=== PATIENT | male | born 1955 | race Caucasian/White ===

== ENCOUNTER 2022-02-28 09:08 | Outpatient (CLI) | payer MEDICARE, SELFPAY ==
--- NOTE | 2022-02-28 09:34 | XR_ITS ---
WS: [id number] PA and lateral chest, 02/28/2022 Clinical Data: COPD,ACUTE EXACERBATION Comparison: Portable chest, 01/01/2019. Findings: No nodules, masses or effusions are seen. The diaphragms are flattened. There are severe bu llous emphysematous changes and interstitial changes throughout the lungs. No pneumothorax is seen. T he heart is normal. There is a single lead pacemaker unchanged in position with the generator overlyi ng the upper left lung. XR/XR chest 2V* [id number] Impression: 1. No change in severe bullous emphysema. 2. No change in severe interstitial infiltrate especially in the lower lobes. 3. Cardiac pacemaker.
== END 2022-02-28 09:09 | disposition home or self-care (01) ==
LOC: RAD 09:13
PROVIDERS: Family Provider Family Medicine; Visit Provider Clinical Nurse Specialist Adult Health
DX: J44.1 Chronic obstructive pulmonary disease with (acute) exacerbation (principal); Z95.0 Presence of cardiac pacemaker
CPT/HCPCS: 71046

== ENCOUNTER 2022-08-23 10:28 | Emergency (ER) | payer MEDICARE, SELFPAY ==
[2022-08-23 10:46] VITALS: BP 132/75; PULSE 84; RESP 16; TEMP 36.6; O2SAT 98; BMI 18.1
[2022-08-23 13:23] VITALS: BP 140/76; PULSE 76; O2SAT 96
--- NOTE | 2022-08-23 13:41 | XRR_ITS ---
PROCEDURE INFORMATION: Exam: XR Chest Exam date and time: 08/23/2022 1:49 PM Age: 66 years old Clinical indication: Cough and dyspnea; Additional info: Cough, dyspnea TECHNIQUE: Imaging protocol: Radiologic exam of the chest. Views: 1 view. COMPARISON: CR XR chest 2V* [id number] 02/28/2022 9:41 AM FINDINGS: Tubes, catheters and devices: Pacemaker stable. Lungs: Hyperinflation. Prominent bronchovascular markings are stable consistent with interstitial lung disease. Pleural spaces: Unremarkable. No pleural effusion. No pneumothorax. Heart/Mediastinum: Unremarkable. No cardiomegaly. Bones/joints: Unremarkable. XR/XR chest 1V portable [id number] IMPRESSION: No change. Interstitial lung changes.
--- NOTE | 2022-08-23 13:41 | ECG_ITS ---
[facility] Test Date: 2022-08-23 Pat Name: Zyead Chu Department: Room: Gender: Male Twisting Operator: : 1955 Requested By: Prosper Vicente Order Number: [id number] Alfonso MD: Ronnie Mcclelland M.D. Measurements Intervals [place] Rate: 71 P: 78 LA: 235 QRS: 98 QRSD: 100 T: 83 QT: 392 QTc: 428 Interpretive Statements SINUS RHYTHM WITH FIRST DEGREE AV BLOCK BORDERLINE RIGHT AXIS DEVIATION [QRS AXIS > 90] PATTERN CONSISTENT WITH PULMONARY DISEASE Compared to ECG 01/01/2019 19:00:38 First degree AV block now present Indeterminate axis no longer present Myocardial infarct finding no longer present Electronically Signed On 08-24-2022 15:02:03 STRUCTURAL SHOP HELPER by Ronnie Mcclelland M.D. [id number]
--- NOTE | 2022-08-23 13:46 | W.ED.SOB ---
HPI - SOB/Dyspnea General: Chief Complaint: Shortness of Breath/Dyspnea Stated Complaint: SOB Time Seen by Provider: 08/23/22 10:50 Source: patient and family Mode of arrival: ambulatory Limitations: no limitations History of Present Illness: HPI Narrative: 66-year-old male smoker with chronic hypoxic hypercapnic respiratory failure due to emphysema COPD presents with exacerbation of dyspnea that he relates to a recent respiratory infection. About 7 days ago he started having runny nose, congestion, headache, sore throat, malaise. The respiratory symptoms progressed and now he has cough and states he cannot walk more than 5 feet. He uses 2 L of oxygen at all times at home. He does continue to smoke cigarettes. He has not had a fever in the last 48 hours. He is vaccinated against influenza and states he has had his primary vaccination series against COVID. His entire family is sick with a respiratory infection. He denies any nausea, vomiting, diarrhea, abdominal pain. Associated symptoms: Deny abdominal pain, chest pain, extremity pain, hemoptysis, nausea, syncope or vomiting Review of Systems General: Reports: 10 or more systems reviewed and unremarkable except in HPI and below Const: Reports: chills, body aches, change in appetite, fatigue and malaise Eyes: Denies: change in vision ENMT: Reports: throat pain, nasal discharge and nasal congestion Card: Denies: chest pain, edema or syncope Resp: Reports: dyspnea, productive cough and wheezing; Denies: change in phlegm color or hemoptysis GI: Denies: abdominal pain, nausea, vomiting or diarrhea : Denies: flank pain, dysuria or urinary frequency Musc: Denies: neck pain, back pain, extremity pain or extremity swelling Skin/Breast: Denies: rash or erythema Neuro: Denies: numbness in extremities, weakness in extremities, lack of coordination or difficulty walking Physical Exam Const: COMMON NORMALS: no limitations and alert EXAM LIMITATIONS: no altered mental status GENERAL APPEARANCE: cooperative ORIENTATION/CONSCIOUSNESS: Yes awake; not confused HENMT: COMMON NORMALS: normocephalic, atraumatic, external ears normal and Normal external nose present HEAD & SCALP: normal to inspection, normocephalic and atraumatic FACE & SINUS: face symmetric NOSE: Normal external nose present EXTERNAL EAR: Yes external ears normal MOUTH: lip normal; no muffled voice Eye: COMMON NORMALS: EOMs intact bilaterally and conjunctivae normal GENERAL EYE: appearance normal, both eyes and all related structures CONJUNCTIVA: Yes conjunctivae normal Neck/C-Spine: COMMON NORMALS: no JVD GENERAL: Yes normal visual inspection and Yes trachea midline Resp: EFFORT & INSPECTION: No able to speak in complete sentences, Yes tachypneic, Yes respiratory distress, Yes pursed lip breathing, No Actively coughing and Yes uses accessory muscles AUSCULTATION: rales, wheezes and diminished lung sounds Cardio: COMMON NORMALS: no JVD, regular rate and regular rhythm RATE: regular rate RHYTHM: regular rhythm PERIPHERAL PULSES: radial pulses present GI: COMMON NORMALS: Soft to palpation INSPECTION: Yes normal to inspection PALPATION: Yes Soft to palpation, No Tenderness to palpation present (GI) and No Guarding due to palpation present (GI) Back/Pelvis: COMMON NORMALS: thoraco-lumbar ROM normal Extremity: COMMON NORMALS: normal to inspection GENERAL: Yes normal exam except as noted Neuro: COMMON NORMALS: moves all extremities, no focal motor deficits and no sensory deficits noted SENSORIUM/ORIENTATION: Yes alert Psych: COMMON NORMALS: mental status grossly normal, Normal thought process present, cooperative, normal affect and speech normal SPEECH: Yes normal speech THOUGHT PROCESS: Normal thought process present Skin: COMMON NORMALS: no rashes or lesions noted, turgor normal and no jaundice GENERAL SKIN EXAM: no rashes or lesions noted and turgor normal Course Vital Signs: Vital signs: Vital Signs Temperature 97.9 F 08/23/22 10:46 Pulse Rate 76 08/23/22 13:23 Respiratory Rate 16 08/23/22 10:46 Blood Pressure 140/76 08/23/22 13:23 Pulse Oximetry 96 08/23/22 13:23 Oxygen Delivery Me thod 08/23/22 13:23 Oxygen Flow Rate 2 08/23/22 13:23 MDM - SOB/Dyspnea Medical Decision Making 66-year-old male with chronic hypoxic hypercapnic respiratory failure who is in a respiratory distress likely due to COPD exacerbation with acute infectious process. Screen for pneumonia. Screen for COVID and influenza. Patient has significantly reduced exertional tolerance. Depending on his response to therapy including IV steroids, duo nebs he may require admission. He does not appear to be septic based on his history and vital signs. Update: Patient got a DuoNeb here and Solu-Medrol. Work-up was remarkable for elevated white blood cell count, chest x-ray showing interstitial lung disease as well as hyperexpansion. No focal infiltrates. COVID test was negative. Elevated CRP consistent with the patient's report of acute infection. ABG showing no evidence of decompensated hypercarbic respiratory failure. Patient is 95% on his baseline oxygen on reassessment. Patient will be treated with doxycycline and prednisone. He will be discharged with return precautions. Lab Data : 08/23/22 13:23 08/23/22 13:23 Labs/Radiology: Radiology Impressions Chest X-Ray 08/23/22 13:41 IMPRESSION: No change. Interstitial lung changes. Laboratory Results WBC 12.5 10^3/uL (4.0-10.0) H 08/23/22 13:23 RBC 5.76 10^6/uL (4.1-5.3) H 08/23/22 13:23 Hgb 17.4 g/dL (11.7-16.6) H 08/23/22 13:23 Hct 53.8 % (42.0-52.0) H 08/23/22 13:23 MCV 93.4 fl (80-94) 08/23/22 13:23 MCH 30.2 pg (28.0-34.0) 08/23/22 13:23 MCHC 32.3 g/dL (30.0-36.0) 08/23/22 13:23 RDW 14.5 % (12.1-15.1) 08/23/22 13:23 Plt Count 236 10^3/cmm (130-400) 08/23/22 13:23 MPV 11.1 fL (7.4-10.4) H 08/23/22 13:23 Neut % (Auto) 78.0 % 08/23/22 13:23 Lymph % (Auto) 13.2 % 08/23/22 13:23 [place] % (Auto) 7.6 % 08/23/22 13:23 Eos % (Auto) 0.5 % 08/23/22 13:23 Baso % (Auto) 0.2 % 08/23/22 13:23 Neut # (Auto) 9.73 10^3/uL (1.8-7.7) H 08/23/22 13:23 Lymph # (Auto) 1.6 10^3/uL (0.8-4.8) 08/23/22 13:23 [place] # (Auto) 0.9 10^3/uL (0.2-0.9) 08/23/22 13:23 Eos # (Auto) 0.1 10^3/uL (0.0-0.8) 08/23/22 13:23 Baso # (Auto) 0.0 10^3/uL (0.0-0.1) 08/23/22 13:23 Nucleated RBC % (auto) 0 % 08/23/22 13: Nucleated RBCs # 0.0 /100WBC 08/23/22 13:23 Specimen Type Arterial 08/23/22 14:23 Sample Site Radial, left 08/23/22 14:23 ABG pH 7.44 (7.35-7.45) 08/23/22 14:23 ABG pCO2 36.0 mmHg (35-45) 08/23/22 14:23 ABG pO2 59.3 mmHg (80.0-100.0) L 08/23/22 14:23 ABG HCO3 24.4 mmol/L (22-26) 08/23/22 14:23 ABG Base Excess 0.7 mmol/L (-2.0-2.0) 08/23/22 14:23 Nick Test Pos 08/23/22 14:23 Hematocrit 51.0 % (42-52) 08/23/22 14:23 Hgb O2 Saturation 87.3 % (95-100) L 08/23/22 14:23 Carboxyhemoglobin 4.7 %THgb (0.4-20.1) 08/23/22 14:23 Methemoglobin 0.5 % (0.4-1.5) 08/23/22 14:23 Total Hemoglobin 16.6 g/dL (14-18) 08/23/22 14:23 O2 Delivery Device Nc 08/23/22 14:23 O2 Liters/Min 2.0 % 08/23/22 14:23 FiO2 28.0 % 08/23/22 14:23 Medical Office Receptionist Assistant ID Cak 08/23/22 14:23 Sodium 141 mmol/L (136-145) 08/23/22 13:23 Potassium 3.9 mmol/L (3.5-5.1) 08/23/22 13:23 Chloride 103 mmol/L (98-107) 08/23/22 13:23 Carbon Dioxide 27 mmol/L (22-29) 08/23/22 13:23 Anion Gap 14.9 (5-19) 08/23/22 13:23 BUN 12 mg/dL (8-23) 08/23/22 13:23 Creatinine 0.7 mg/dL (0.7-1.2) 08/23/22 13:23 GFR Calculation 113.5 mL/min (90-130) 08/23/22 13:23 Glucose 77 mg/dL (65-115) 08/23/22 13:23 Calculated Osmolality 291 mOsm/kg (285-295) 08/23/22 13:23 Lactic Acid 1.4 mmol/L (0.5-2.2) 08/23/22 13:23 Calcium 9.6 mg/dL (8.5-10.5) 08/23/22 13:23 Magnesium 1.9 mg/dL (1.7-2.3) 08/23/22 13:23 Total Bilirubin 0.3 mg/dL (0.15-1.2) 08/23/22 13:23 AST 15 U/L (0-40) 08/23/22 13:23 ALT 9 U/L (0-41) 08/23/22 13:23 Alkaline Phosphatase 93 U/L (40-130) 08/23/22 13:23 C-Reactive Protein 31.9 mg/L (0.0-4.9) H 08/23/22 13:23 Total Protein 7.6 g/dL (6.6-8.7) 08/23/22 13:23 Albumin 3.8 g/dL (3.5-5.2) 08/23/22 13:23 Globulin 3.8 g/dL (1.3-4.6) 08/23/22 13:23 Influenza Type A Ag negative (Negative) 08/23/22 14:30 Influenza Type B Ag negative (Negative) 08/23/22 14:30 SARS-CoV-2 Ag (Rapid) negative (Negative) 08/23/22 14:30 Imaging Data CXR: My impression: agree with radiologist Radiologist's impression: Lungs: Hyperinflation. Prominent bronchovascular markings are stable consistent with interstitial lung disease. Pleural spaces: Unremarkable. No pleural effusion. No pneumothorax. Heart/Mediastinum: Unremarkable. No cardiomegaly. Bones/joints: Unremarkable. EKG Data EKG 1: Interpretation: Sinus rhythm with first-degree AV block, rate 71, right axis deviation, no concerning ST segment elevations or depressions, Discharge Plan Discharge Condition: Stable Prescriptions: No Action albuterol sulfate 2.5 mg /3 mL (0.083 %) solution for nebulization 2.5 mg inhalation TID Vitamin B-12 1,000 mcg Tablet 1,000 mcg PO QAM Aspir-81 81 mg Tablet,Delayed Release (Dr/Ec) 81 mg PO QAM lisinopril 2.5 mg tablet 2.5 mg PO QAM CoQ-10 100 mg Capsule 200 mg PO QPM rosuvastatin 40 mg tablet 40 mg PO QPM potassium gluconate 595 mg (99 mg) Tablet 595 mg PO QPM Vitamin D3 125 mcg (5,000 unit) Tablet 125 mcg PO QAM Fish Oil 1,000 mg (120 mg-180 mg) Capsule See Rx Instructions .ROUTE .COMPLEX Rx Instructions: 2 caps po qam and 1 cap po qpm melatonin 10 mg Tablet 10 mg PO BEDTIME Trelegy Ellipta 200-62.5-25 mcg Blister With Device 1 inh INHALATION QAM Foz-Jhj-Lduo Tabs 1 tab PO QPM trazodone 100 mg tablet 100 mg PO BEDTIME Referrals: Everardo Gallegos DO [Primary Care Provider] - Coding Level of Care Code ED Certified Histologic Technician for Chg Fwd Exam Comprehensive
[2022-08-23 14:02] LABS: Basophils % 0.2 %; Eosinophils # 0.1 10^3/uL (0.0-0.8); Eosinophils % 0.5 %; Hematocrit 53.8 % (42.0-52.0); Hemoglobin 17.4 g/dL (11.7-16.6); Lymphocytes # 1.6 10^3/uL (0.8-4.8); Lymphocytes % 13.2 %; Mean Corpuscular HGB Conc 32.3 g/dL (30.0-36.0); Mean Corpuscular Hemoglobin 30.2 pg (28.0-34.0); Mean Corpuscular Volume 93.4 fl (80-94); Mean Platelet Volume 11.1 fL (7.4-10.4); Monocytes # 0.9 10^3/uL (0.2-0.9); Monocytes % 7.6 %; Neutrophils # 9.73 10^3/uL (1.8-7.7); Nucleated Red Blood Cells % 0 %; Platelet Count 236 10^3/cmm (130-400); Red Blood Count 5.76 10^6/uL (4.1-5.3); Red Cell Distribution Width 14.5 % (12.1-15.1); White Blood Count 12.5 10^3/uL (4.0-10.0)
[2022-08-23 14:08] LABS: Alanine Aminotransferase 9 U/L (0-41); Albumin Level 3.8 g/dL (3.5-5.2); Alkaline Phosphatase 93 U/L (40-130); Anion Gap 14.9 (5-19); Aspartate Amino Transferase 15 U/L (0-40); Blood Urea Nitrogen 12 mg/dL (8-23); C Reactive Protein 31.9 mg/L (0.0-4.9); Calcium 9.6 mg/dL (8.5-10.5); Carbon Dioxide 27 mmol/L (22-29); Chloride 103 mmol/L (98-107); Globulin 3.8 g/dL (1.3-4.6); Glomerular Filtration Rate 113.5 mL/min (90-130); Glucose 77 mg/dL (65-115); Magnesium 1.9 mg/dL (1.7-2.3); Osmolality Calculated 291 mOsm/kg (285-295); Potassium 3.9 mmol/L (3.5-5.1); Sodium 141 mmol/L (136-145); Total Bilirubin 0.3 mg/dL (0.15-1.2); Total Protein 7.6 g/dL (6.6-8.7)
[2022-08-23 14:09] LABS: Lactic Sepsis W/Reflex 1.4 mmol/L (0.5-2.2)
[2022-08-23 14:35] LABS: ABG PH Result 7.44 (7.35-7.45); Base Excess ABG 0.7 mmol/L (-2.0-2.0); Blood Gas Allen Test Pos; Blood Gas Operator Identificat CAK; Blood Gas Sample Site Radial, left; Blood Gas Sample Type Arterial; Carboxyhemoglobin 4.7 %THgb (0.4-20.1); HCO3 ABG 24.4 mmol/L (22-26); HGB O2 Sat 87.3 % (95-100); Methemoglobin 0.5 % (0.4-1.5); Oxygen Device NC; PO2 ABG 59.3 mmHg (80.0-100.0); Total Hemoglobin 16.6 g/dL (14-18)
[2022-08-23 15:14] LABS: Influenza A by IFA negative (Negative); Influenza B by IFA negative (Negative); SARS Covid-2 Antigen negative (Negative)
[2022-08-23] MEDS: doxycycline 100 mg Tablet PO (16:29)
[2022-08-23 16:35] VITALS: BP 137/89; PULSE 93; RESP 20; O2SAT 94
== END 2022-08-23 16:43 | disposition home or self-care (01) ==
PROVIDERS: Emergency Provider Emergency Medicine; PCP Family Medicine
DX: R09.89 Other specified symptoms and signs involving the circulatory and respiratory systems (principal); R51.9 Headache, unspecified; J02.9 Acute pharyngitis, unspecified; Z79.82 Long term (current) use of aspirin; Z20.822 Contact with and (suspected) exposure to COVID-19
CPT/HCPCS: 36600; 71045; 80053; 82805; 83605; 83735; 85025; 86140; 87426; 87804; 93005; 96374; 99285; J2930

== ENCOUNTER → 2023-01-28 09:57 | Outpatient (BNVA) | payer MEDICARE, SELFPAY | PROVIDERS: PCP Family Medicine; Visit Provider Family Medicine | DX: C64.9 Malignant neoplasm of unspecified kidney, except renal pelvis (principal); I10 Essential (primary) hypertension; J44.9 Chronic obstructive pulmonary disease, unspecified; M19.90 Unspecified osteoarthritis, unspecified site; J44.1 Chronic obstructive pulmonary disease with (acute) exacerbation | CPT/HCPCS: 80053; 80061; 82607; 84443; 85025 ==

== ENCOUNTER → 2023-03-07 09:28 | Outpatient (BNVA) | payer MEDICARE, SELFPAY | PROVIDERS: PCP Family Medicine; Visit Provider Internal Medicine Interventional Cardiology | DX: I10 Essential (primary) hypertension (principal); E78.5 Hyperlipidemia, unspecified; I25.10 Atherosclerotic heart disease of native coronary artery without angina pectoris; Z79.899 Other long term (current) drug therapy | CPT/HCPCS: 80053; 80061 ==

== ENCOUNTER → 2023-11-12 10:26 | Outpatient (BNVA) | payer MEDICARE, SELFPAY | PROVIDERS: PCP Family Medicine; Visit Provider Nurse Practitioner | DX: R06.02 Shortness of breath (principal) | CPT/HCPCS: 71046 ==

== ENCOUNTER 2023-11-12 13:28 | Emergency (ER) | payer MEDICARE, SELFPAY ==
--- NOTE | 2023-11-12 13:30 | ECG_ITS ---
[facility] Test Date: 2023-11-12 Pat Name: Zeyad Chu Department: Room: Gender: Male Engineering Group Manager: : 1955 Requested By: Cynthia Bhardwaj Order Number: [id number] Alfonso MD: Melo Oneill M.D. Measurements Intervals [place] Rate: 87 P: 73 RI: 198 QRS: 94 QRSD: 86 T: 84 QT: 374 QTc: 452 Interpretive Statements SINUS RHYTHM BORDERLINE RIGHT AXIS DEVIATION [QRS AXIS > 90] MARKED ST ELEVATION, CONSIDER INFERIOR INJURY [MARKED ST ELEVATION W/O NORMALLY INFLECTED T-WAVE IN II/aVF] ACUTE TN Compared to ECG 08/23/2022 15:17:25 ST (T wave) deviation now present Myocardial infarct finding now present First degree AV block no longer present Electronically Signed On 11-12-2023 18:30:24 AGENCY OPERATOR by Melo Oneill M.D. [id number]
--- NOTE | 2023-11-12 13:31 | XR_ITS ---
WS: [id number] Portable AP upright chest, 11/12/2023, 1403 hours Clinical Data: sob Comparison: Two-view chest, 11/12/2023 1053 hours Findings: No nodules, masses or effusions are seen. The heart is normal. There are diffuse fibrotic c hanges throughout both lungs. Hyperinflation is present. There is bullous emphysema in the right uppe r lobe with a small localized pneumothorax unchanged. There is also a right lateral lower pneumothora x unchanged. The pulmonary vascularity is not increased. No pneumonia is seen. There is a permanent pacemaker with the leads ending in the heart. The pacemaker has been changed and there are now 2 santosh ds in the heart. There are monitor leads on the chest wall. Impression: 1. Change in permanent pacemaker with 2 leads in the heart instead of 1. 2. Chronic fibrotic changes, hyperinflation and localized pneumothorax of the right lung unchanged.
[2023-11-12 13:34] VITALS: BP 133/77; PULSE 88; RESP 14; TEMP 36.4; O2SAT 94
[2023-11-12 13:55] VITALS: BP 149/89; PULSE 88; RESP 18; O2SAT 92
--- NOTE | 2023-11-12 13:58 | CT_ITS ---
WS: [id number] CT CHEST ANGIOGRAPHY WITH REFORMATS HISTORY: dyspnea TECHNIQUE: Contiguous axial images are obtained through the chest during arterial injection of intrav enous contrast. Images are reconstructed to evaluate the pulmonary arteries. MIP imaging also reviewe d. All CT scans at [facility] use at least one of these dose optimization techniques: automat ed exposure control; mA and/or kV adjustment per patient size (includes targeted exams where dose is matched to clinical indication); or iterative reconstruction. CONTRAST: Omnipaque 350; 100 mL IV. DLP: 275.15 mGy.cm COMPARISON: Chest radiograph 11/12/2023 and prior chest CTA 11/07/2018 Very good opacification of the pulmonary arteries. No pulmonary embolism. Mild atherosclerosis aorta. Heart is normal size. Heart is being slightly displaced by a large bulla within the RIGHT lung cross ing the midline. There is mild mass effect upon the RIGHT ventricle which may be limiting expansion o f the ventricle. There are numerous large bulla extending across the midline. There is also a small loculated RIGHT pn eumothorax which has been previously described. Pneumothorax is predominantly noted at the RIGHT lung base. Linear consolidation in the RIGHT upper lobe measures 2.2 x 0.8 cm. This was not present on th e prior study. Reidentified is a solid mass measuring 2.5 x 3.0 cm at the LEFT lung base which is act ually increased in size. Mediastinal and hilar lymph nodes are mildly enlarged. RIGHT hilar lymph node measures up to 13 mm. L ymph nodes appear larger than compared to 11/07/2018. LEFT subclavian dual-lead cardiac pacer. Partially visualized endovascular grafting of the abdominal aortic aneurysm. Incompletely visualized cyst associated with the RIGHT kidney. LEFT hepatic cyst 1.7 cm. IMPRESSION: 1. No pulmonary embolism. 2. Severe bullous emphysema with large RIGHT bulla expanding across the midline to the LEFT. 3. Localized RIGHT pneumothorax also described by recent chest radiograph. Pneumothorax plus the lar ge bulla contributing to shift across the midline. Component of a tension pneumothorax is not exclude d. 4. Soft tissue opacification RIGHT upper lobe and at the LEFT lung base. These need to be further ev aluate for possible neoplasm. The mass at the LEFT lung base has increased in size since 11/07/2018 no w measuring 2.5 x 3.0 cm. 5. Increase in number and size of the mediastinal and hilar lymph nodes. Lymph nodes measure up to 1 .3 cm. Reactive or neoplastic lymph nodes. Notified Te Damon DO at 11/12/2023 3:53 PM.
--- NOTE | 2023-11-12 14:12 | ED_ITS ---
Documented by User: Te Damon DO 11/13/23 07:20 HPI - SOB/Dyspnea 2 General: Chief Complaint: Shortness of Breath/Dyspnea Stated Complaint: sent over by aparna hernandez Time Seen by Provider: 11/12/23 13:43 Source: patient Mode of arrival: ambulatory History of Present Illness: HPI Narrative: 67-year-old male presents to the emergen cy room with complaint of shortness of breath. He was seen today in his primary care doctor's office for acute chest ache there is a question of a pneumothorax on the right base. He has a known history of COPD does definitely have bulla and his chest x-ray. He did not notice anything that treatment is triggered the symptoms are sided off has not had any fevers sweats or chills he had a slight worsening of his cough no hemoptysis. He normally wears 3 L by nasal cannula and maintaining sats of low 90s consistently on his usual 3 L he denies any chest pain. MD elicited complaint: shortness of breath and cough Pertinent past history: COPD Severity: mild Exacerbating factors: exertion Relieving factors: oxygen and rest Known history of: COPD Associated symptoms: Deny abdominal pain, chest congestion, chest pain, cough, diaphoresis, dizziness, extremity pain, fever(s), hemoptysis, lightheadedness, myalgias, nausea, orthopnea, palpitations, paresthesias, polydipsia, polyuria, rash, sense of impending doom, syncope or vomiting Treatment prior to arrival: oxygen Review of Systems 2 Const: Denies: fever(s), chills or diaphoresis Card: Denies: chest pain, palpitations, lightheadedness, syncope or orthopnea Resp: Reports: dyspnea, non-productive cough and wheezing; Denies: hemoptysis or chest congestion GI: Denies: abdominal pain, nausea or vomiting : Denies: dysuria, urinary frequency or urinary urgency Musc: Denies: extremity pain Skin/Breast: Denies: rash Neuro: Denies: dizziness Endo: Denies: polyuria or polydipsia PFSH ED 2 PFSH: Medical History (Updated 11/12/23 @ 15:58 by Te Damon DO) Prostate hypertrophy Renal cancer Hypertension COPD (chronic obstructive pulmonary disease) Social History (Updated 11/12/23 @ 14:14 by BASSEM Denny Smoking and tobacco/nicotine status: current every day tobacco/nicotine user Physical Exam 2 Const: GENERAL APPEARANCE: cooperative and comfortable O RIENTATION/CONSCIOUSNESS: Yes awake, Yes oriented to person, Yes oriented to place and Yes oriented to time HENMT: COMMON NORMALS: normocephalic, atraumatic and hearing grossly normal bilaterally HEAD & SCALP: normocephalic and atraumatic Resp: COMMON NORMALS: normal respiratory effort, No retractions and No use of accessory muscles AUSCULTATION: rhonchi and wheezes Cardio: COMMON NORMALS: regular rate, regular rhythm and No murmurs present (Cardio) RATE: regular rate RHYTHM: regular rhythm GI: COMMON NORMALS: Soft to palpation and No hepatosplenomegaly present A USCULTATION: Yes normoactive bowel sounds PALPATION: Yes Soft to palpation, No Tenderness to palpation present (GI), No Guarding due to palpation present (GI) and Yes No hepatosplenomegaly present Extremity: COMMON NORMALS: normal to inspection, capillary refill normal, no clubbing, cyanosis or edema, no calf tenderness and no pedal edema Neuro: SENSORIUM/ORIENTATION: Yes oriented to person, Yes oriented to place and Yes oriented to time Skin: COMMON NORMALS: no rashes or lesions noted GENERAL SKIN EXAM: no rashes or lesions noted Course 2 Vital Signs: Vital signs: Vital Signs Temperature 97.6 F 11/12/23 13:34 Pulse Rate 75 11/12/23 19:00 Respiratory Rate 18 11/12/23 22:53 Blood Pressure 137/96 11/12/23 22:53 Pulse Oximetry 93 11/12/23 22:53 Oxygen Delivery Me thod Nasal Cannula 11/12/23 19:00 Oxygen Flow Rate 3 11/12/23 19:00 MDM - SOB/Dyspnea Medical Decision Making On initial presentation patient was stable and maintaining normal sats without difficulty breathing at rest. Afterward reviewed the chest x-ray CTA was ordered reviewed CTA no acute pulmonary emboli but there is a trapped pneumothorax that is probably chronic reviewed with Dr. Friedman pulmonology at [facility] and with Dr. Prescott from radiology. Patient has multiple bullae the pneumothorax appears to be trapped at the base of the right lung. Concern would be safely placing a thoracostomy tube there additionally negative pressure is likely to rupture adjacent bullae create complicating the problem. We had planned to let the patient go home however when we went to get him up to the wheelchair he began to be extremely short of breath repeat chest x-ray did not show significant change. Patient became dyspneic to the point of diaphoresis. He improved with rest. He desatted into the mid 80s with the attempt just to get to the wheelchair. At this point I do not believe he is will be be able to go home reviewing with Dr. Prescott she had felt there was a possibility that this was beginning to put some pressure on the right side of the heart although there were not clear signs of a tension pneumothorax. We did try to contact Dr. Cutler from his office who usually sees the patient he was not available. We have initiated transfer to [facility] to the on-call pulmonology the films have been uploaded. Care signed out to Dr. Deng at change of shift. See final notes for diagnosis and disposition. Received the patient in transfer at shift change. A call was already made to a physician primary care sports medicine at [facility] as well as images being transferred there. Per marketing project coordinator the physician primary care sports medicine there wanted him transferred to [facility] ER to ER. Dr. Partida in the ER accepted the patient in transfer. Differential Diagnosis Likely acute exacerbation of chronic obstructive airways disease and pulmonary embolism Medical Records I reviewed the patient's medical records. Lab Data I reviewed the patient's lab results. 11/12/23 13:52 11/12/23 13:52 Labs/Radiology: Radiology Impressions Chest X-Ray 11/12/23 17:20 IMPRESSION: Unchanged chest x-ray. Laboratory Results WBC 11.56 10^3/uL (3.29-11.43) H 11/12/23 13:52 RBC 5.76 10^6/uL (3.85-5.65) H 11/12/23 13:52 Hgb 16.80 g/dL (11.27-16.99) 11/12/23 13:52 Hct 52.0 % (37-53) 11/12/23 13:52 MCV 90.3 fl (82-101) 11/12/23 13:52 MCH 29.2 pg (27-33) 11/12/23 13:52 MCHC 32.3 g/dL (30-55) 11/12/23 13:52 RDW 15.9 % (12.1-15.1) H 11/12/23 13:52 Plt Count 211 10^3/cmm (157-399) 11/12/23 13:52 MPV 9.3 fL (7.4-10.4) 11/12/23 13:52 Neut % (Auto) 75.0 % 11/12/23 13:52 Lymph % (Auto) 16.6 % 11/12/23 13:52 [place] % (Auto) 6.2 % 11/12/23 13:52 Eos % (Auto) 1.4 % 11/12/23 13:52 Baso % (Auto) 0.4 % 11/12/23 13:52 Neut # (Auto) 8.66 10^3/uL (1.8-7.7) H 11/12/23 13:52 Lymph # (Auto) 1.9 10^3/uL (0.8-4.8) 11/12/23 13:52 [place] # (Auto) 0.7 10^3/uL (0.2-0.9) 11/12/23 13:52 Eos # (Auto) 0.2 10^3/uL (0.0-0.8) 11/12/23 13:52 Baso # (Auto) 0.1 10^3/uL (0.0-0.1) 11/12/23 13:52 Nucleated RBC % (auto) 0 % 11/12/23 13:52 Nucleated RBCs # 0.0 /100WBC 11/12/23 13:52 Sodium 141 mmol/L (136-145) 11/12/23 13:52 Potassium 3.8 mmol/L (3.5-5.1) 11/12/23 13:52 Chloride 103 mmol/L (98-107) 11/12/23 13:52 Carbon Dioxide 27 mmol/L (22-29) 11/12/23 13:52 Anion Gap 14.8 (5-19) 11/12/23 13:52 BUN 13 mg/dL (8-23) 11/12/23 13:52 Creatinine 0.9 mg/dL (0.7-1.2) 11/12/23 13:52 GFR Calculation 84.7 mL/min (90-130) L 11/12/23 13:52 Glucose 89 mg/dL (65-115) 11/12/23 13:52 Calculated Osmolality 292 mOsm/kg (285-295) 11/12/23 13:52 Calcium 9.8 mg/dL (8.5-10.5) 11/12/23 13:52 Total Bilirubin 0.3 mg/dL (0.15-1.2) 11/12/23 13:52 AST 13 U/L (0-40) 11/12/23 13:52 ALT 8 U/L (0-41) 11/12/23 13:52 Alkaline Phosphatase 93 U/L (40-130) 11/12/23 13:52 NT-Pro-B Natriuret Pep 141 pg/mL (0-125) H 11/12/23 13:52 Total Protein 7.3 g/dL (6.6-8.7) 11/12/23 13:52 Albumin 3.6 g/dL (3.5-5.2) 11/12/23 13:52 Globulin 3.7 g/dL (1.3-4.6) 11/12/23 13:52 Influenza Type A Ag negative (Negative) 11/12/23 13:52 Influenza Type B Ag negative (Negative) 11/12/23 13:52 SARS-CoV-2 Ag (Rapid) negative (Negative) 11/12/23 13:52 Discharge Plan Discharge Patient Disposition: Xfer Short-Term Hosp Clinical Impression: Bulla of lung, Chronic pneumothorax Referrals: Everardo Gallegos DO [Primary Care Provider] - Coding Level of Care Code ED Faucets Assembler for Chg Fwd Documented by User: Shaw Deng DO 11/12/23 21:26 HPI - SOB/Dyspnea 2 General: Chief Complaint: Shortness of Breath/Dyspnea Stated Complaint: sent over by aparna hernandez Time Seen by Provider: 11/12/23 13:43 PFSH ED 2 PFSH: Medical History (Updated 11/12/23 @ 15:58 by Te Damon DO) Prostate hypertrophy Renal cancer Hypertension COPD (chronic obstructive pulmonary disease) Social History (Updated 11/12/23 @ 14:14 by Te Damon DO) Smoking and tobacco/nicotine status: current every day tobacco/nicotine user Course 2 Vital Signs: Vital signs: Vital Signs Temperature 97.6 F 11/12/23 13:34 Pulse Rate 75 11/12/23 19:00 Respiratory Rate 18 11/12/23 22:53 Blood Pressure 137/96 11/12/23 22:53 Pulse Oximetry 93 11/12/23 22:53 Oxygen Delivery Me thod Nasal Cannula 11/12/23 19:00 Oxygen Flow Rate 3 11/12/23 19:00 MDM - SOB/Dyspnea Medical Decision Making Received the patient in transfer at shift change. A call was already made to a physician primary care sports medicine at [facility] as well as images being transferred there. Per marketing project coordinator the physician primary care sports medicine there wanted him transferred to [facility] ER to ER. Dr. Partida in the ER accepted the patient in transfer. Lab Data 11/12/23 13:52 11/12/23 13:52 Labs/Radiology: Radiology Impressions Chest X-Ray 11/12/23 17:20 IMPRESSION: Unchanged chest x-ray. Laboratory Results WBC 11.56 10^3/uL (3.29-11.43) H 11/12/23 13:52 RBC 5.76 10^6/uL (3.85-5.65) H 11/12/23 13:52 Hgb 16.80 g/dL (11.27-16.99) 11/12/23 13:52 Hct 52.0 % (37-53) 11/12/23 13:52 MCV 90.3 fl (82-101) 11/12/23 13:52 MCH 29.2 pg (27-33) 11/12/23 13:52 MCHC 32.3 g/dL (30-55) 11/12/23 13:52 RDW 15.9 % (12.1-15.1) H 11/12/23 13:52 Plt Count 211 10^3/cmm (157-399) 11/12/23 13:52 MPV 9.3 fL (7.4-10.4) 11/12/23 13:52 Neut % (Auto) 75.0 % 11/12/23 13:52 Lymph % (Auto) 16.6 % 11/12/23 13:52 [place] % (Auto) 6.2 % 11/12/23 13:52 Eos % (Auto) 1.4 % 11/12/23 13:52 Baso % (Auto) 0.4 % 11/12/23 13:52 Neut # (Auto) 8.66 10^3/uL (1.8-7.7) H 11/12/23 13:52 Lymph # (Auto) 1.9 10^3/uL (0.8-4.8) 11/12/23 13:52 [place] # (Auto) 0.7 10^3/uL (0.2-0.9) 11/12/23 13:52 Eos # (Auto) 0.2 10^3/uL (0.0-0.8) 11/12/23 13:52 Baso # (Auto) 0.1 10^3/uL (0.0-0.1) 11/12/23 13:52 Nucleated RBC % (auto) 0 % 11/12/23 13:52 Nucleated RBCs # 0.0 /100WBC 11/12/23 13:52 Sodium 141 mmol/L (136-145) 11/12/23 13:52 Potassium 3.8 mmol/L (3.5-5.1) 11/12/23 13:52 Chloride 103 mmol/L (98-107) 11/12/23 13:52 Carbon Dioxide 27 mmol/L (22-29) 11/12/23 13:52 Anion Gap 14.8 (5-19) 11/12/23 13:52 BUN 13 mg/dL (8-23) 11/12/23 13:52 Creatinine 0.9 mg/dL (0.7-1.2) 11/12/23 13:52 GFR Calculation 84.7 mL/min (90-130) L 11/12/23 13:52 Glucose 89 mg/dL (65-115) 11/12/23 13:52 Calculated Osmolality 292 mOsm/kg (285-295) 11/12/23 13:52 Calcium 9.8 mg/dL (8.5-10.5) 11/12/23 13:52 Total Bilirubin 0.3 mg/dL (0.15-1.2) 11/12/23 13:52 AST 13 U/L (0-40) 11/12/23 13:52 ALT 8 U/L (0-41) 11/12/23 13:52 Alkaline Phosphatase 93 U/L (40-130) 11/12/23 13:52 NT-Pro-B Natriuret Pep 141 pg/mL (0-125) H 11/12/23 13:52 Total Protein 7.3 g/dL (6.6-8.7) 11/12/23 13:52 Albumin 3.6 g/dL (3.5-5.2) 11/12/23 13:52 Globulin 3.7 g/dL (1.3-4.6) 11/12/23 13:52 Influenza Type A Ag negative (Negative) 11/12/23 13:52 Influenza Type B Ag negative (Negative) 11/12/23 13:52 SARS-CoV-2 Ag (Rapid) negative (Negative) 11/12/23 13:52 XR interpretation done by ED provider, pending radiology final review Discharge Plan Discharge Patient Disposition: Xfer Short-Term Hosp Clinical Impression: Bulla of lung, Chronic pneumothorax Referrals: Everardo Gallegos DO [Primary Care Provider] - Coding Level of Care Code ED Faucets Assembler for Yiselg Janee
[2023-11-12 14:16] LABS: Basophils # 0.1 10^3/uL (0.0-0.1); Basophils % 0.4 %; Eosinophils # 0.2 10^3/uL (0.0-0.8); Eosinophils % 1.4 %; Lymphocytes # 1.9 10^3/uL (0.8-4.8); Lymphocytes % 16.6 %; Mean Corpuscular HGB Conc 32.3 g/dL (30-55); Mean Corpuscular Hemoglobin 29.2 pg (27-33); Mean Corpuscular Volume 90.3 fl (82-101); Mean Platelet Volume 9.3 fL (7.4-10.4); Monocytes # 0.7 10^3/uL (0.2-0.9); Monocytes % 6.2 %; Neutrophils # 8.66 10^3/uL (1.8-7.7); Nucleated Red Blood Cells % 0 %; Platelet Count 211 10^3/cmm (157-399); Red Blood Count 5.76 10^6/uL (3.85-5.65); Red Cell Distribution Width 15.9 % (12.1-15.1); White Blood Count 11.56 10^3/uL (3.29-11.43)
[2023-11-12 14:28] LABS: SARS Covid-2 Antigen negative (Negative)
[2023-11-12 14:29] LABS: Influenza A by IFA negative (Negative); Influenza B by IFA negative (Negative)
[2023-11-12 14:33] LABS: Alanine Aminotransferase 8 U/L (0-41); Albumin Level 3.6 g/dL (3.5-5.2); Alkaline Phosphatase 93 U/L (40-130); Anion Gap 14.8 (5-19); Aspartate Amino Transferase 13 U/L (0-40); Blood Urea Nitrogen 13 mg/dL (8-23); Calcium 9.8 mg/dL (8.5-10.5); Carbon Dioxide 27 mmol/L (22-29); Chloride 103 mmol/L (98-107); Globulin 3.7 g/dL (1.3-4.6); Glomerular Filtration Rate 84.7 mL/min (90-130); Glucose 89 mg/dL (65-115); NT Pro B Type Natriuretic Pept 141 pg/mL (0-125); Osmolality Calculated 292 mOsm/kg (285-295); Potassium 3.8 mmol/L (3.5-5.1); Sodium 141 mmol/L (136-145); Total Bilirubin 0.3 mg/dL (0.15-1.2); Total Protein 7.3 g/dL (6.6-8.7)
[2023-11-12] MEDS: fentaNYL 50 mcg/mL INJ 2mL 25 MCG IVP (15:17)
[2023-11-12] MEDS: iohexol 350 mg/mL 500 mL Btl (per mL) IV (15:29)
--- NOTE | 2023-11-12 17:20 | XRR_ITS ---
PROCEDURE INFORMATION: Exam: XR Chest Exam date and time: 11/12/2023 5:25 PM Age: 67 years old Clinical indication: Shortness of breath; Prior surgery; Surgery date: 6+ months; Surgery type: Pacer; Additional info: Dyspnea/cough TECHNIQUE: Imaging protocol: Radiologic exam of the chest. Views: 1 view. COMPARISON: 1. CT angio chest PE protcl [id number] 11/12/2023 3:19 PM 2. CR XR chest 2V* [id number] 11/12/2023 10:42 AM FINDINGS: Tubes, catheters and devices: Stable intact pacemaker hardware. Lungs: Severe bullous emphysematous changes are again noted particularly in the right upper lung field. Severe pulmonary fibrosis is present. No new or acute findings. Pleural spaces: Right-sided pneumothorax is unchanged. Heart/Mediastinum: Unremarkable. No cardiomegaly. Bones/joints: Unremarkable. XR/XR chest 1V portable [id number] IMPRESSION: Unchanged chest x-ray.
[2023-11-12 18:05] VITALS: BP 162/82; PULSE 91; RESP 18; O2SAT 92
[2023-11-12] MEDS: dexamethasone 10 mg/mL INJ IVP (18:05)
[2023-11-12 18:44] VITALS: BP 143/86
[2023-11-12 19:00] VITALS: BP 142/82; PULSE 75; O2SAT 92
[2023-11-12 22:53] VITALS: BP 137/96; RESP 18; O2SAT 93
== END 2023-11-12 21:00 | disposition short-term general hospital (02) ==
PROVIDERS: Emergency Medicine; Emergency Provider Emergency Medicine; PCP Family Medicine
DX: J43.9 Emphysema, unspecified (principal); J93.81 Chronic pneumothorax; Z11.52 Encounter for screening for COVID-19; I10 Essential (primary) hypertension; Z72.0 Tobacco use; Z85.528 Personal history of other malignant neoplasm of kidney; R06.02 Shortness of breath
CPT/HCPCS: 71045; 71046; 71275; 80053; 83880; 85025; 87426; 87804; 93005; 96374; 96375; 99285; J1100; J3010; Q9967

== ENCOUNTER 2024-01-02 16:08 | Emergency (ER) | payer MEDICARE, SELFPAY ==
[2024-01-02] VITALS (32 sets, daily range): BP systolic 123–149; BP diastolic 67–83; PULSE 33–95; RESP 13–22; TEMP 36.7; O2SAT 86–98
--- NOTE | 2024-01-02 16:13 | ECG_ITS ---
[facility] Test Date: 2024-01-02 Pat Name: Zeyad Chu Department: Room: Gender: Male Physician General Internal Medicine: : 1955 Requested By: Te Crowley Order Number: [id number] Alfonso MD: Melo Oneill M.D. Measurements Intervals [place] Rate: 101 P: 85 MS: 189 QRS: 95 QRSD: 98 T: 76 QT: 274 QTc: 355 Interpretive Statements SINUS TACHYCARDIA INDETERMINATE AXIS NONSPECIFIC T-WAVE ABNORMALITY Compared to ECG 11/12/2023 13:46:14 Indeterminate axis now present T-wave abnormality now present Sinus rhythm no longer present ST (T wave) deviation no longer present Myocardial infarct finding no longer present Electronically Signed On 01-03-2024 15:53:58 CDT by Melo Oneill M.D. [id number]
--- NOTE | 2024-01-02 16:17 | XRR_ITS ---
PROCEDURE INFORMATION: Exam: XR Chest Exam date and time: 01/02/2024 4:24 PM Age: 68 years old Clinical indication: Patient HX: Shortness of breath; HX of copd; Additional info: Dyspnea/cough TECHNIQUE: Imaging protocol: Radiologic exam of the chest. Views: 1 view. COMPARISON: CR XR chest 1V portable [id number] 11/12/2023 5:25 PM FINDINGS: Tubes, catheters and devices: Left-sided pacemaker. Lungs: Severe diffuse emphysematous changes. Bibasilar atelectasis versus infiltrate. Pleural spaces: Right-sided pneumothorax suspected given a lucency along the right lateral lung field measuring 7.4 mm in thickness. Lucencies in the apex are again seen which may reflect bullae, however, a pneumothorax in this area is not excluded. Chest CT could further evaluate this. Trace right pleural effusion. Heart/Mediastinum: Unremarkable. No cardiomegaly. Bones/joints: Unremarkable. XR/XR chest 1V portable [id number] IMPRESSION: 1. Right-sided pneumothorax suspected given a lucency along the right lateral lung field measuring 7.4 mm in thickness. Lucencies in the apex are again seen which may reflect bullae, however, a pneumothorax in this area is not excluded. Chest CT could further evaluate this. 2. Severe diffuse emphysematous changes. 3. Trace right pleural effusion. 4. Bibasilar atelectasis versus infiltrate. 5. Left-sided pacemaker.
[2024-01-02] MEDS: ipratropium-albuterol 3 mL Neb INHALATION (16:37)
--- NOTE | 2024-01-02 16:37 | W.ED.SOB ---
Documented by User: Te Damon DO 01/03/24 13:38 HPI - SOB/Dyspnea General: Chief Complaint: Shortness of Breath/Dyspnea Stated Complaint: sob Time Seen by Provider: 01/02/24 16:16 Source: patient Mode of arrival: EMS History of Present Illness: HPI Narrative: Six 8-year-old male presents emergency room with complaints of shortness of breath. He has a history of severe COPD is normally on 3 L by nasal cannula. He is requiring 4 to maintain sats in the low 90s. He did receive Ativan and a nebulizer and route which improved he had a respiratory rate of 40 initially when EMS seen him. We seen him back in October he had a loculated pneumothorax he was transferred to [facility] where he seen pulmonology they did place a chest tube and he was there he said between 5 or 7 days on a follow-up visit after that he was found to have recurrence of the pneumothorax but they had elected to just observe it. We do not have a picture of that image. He denies any fever sweats or chills he is not having any chest pain at this time. MD elicited complaint: shortness of breath Pertinent past history: COPD Onset (ago): hour(s) Exacerbating factors: exertion and coughing Relieving factors: nothing Associated symptoms: Deny abdominal pain, chest congestion, chest pain, cough, diaphoresis, dizziness, extremity pain, fever(s), hemoptysis, lightheadedness, myalgias, nausea, orthopnea, palpitations, paresthesias, polydipsia, polyuria, rash, sense of impending doom, syncope or vomiting Treatment prior to arrival: bronchodilator and other Related Data: Home oxygen amount: 3 liters Review of Systems Const: Denies: fever(s) or diaphoresis Card: Denies: chest pain, palpitations, lightheadedness, syncope or orthopnea Resp: Reports: dyspnea and wheezing; Denies: hemoptysis or chest congestion GI: Denies: abdominal pain, nausea or vomiting : Denies: dysuria, urinary frequency or urinary urgency Musc: Denies: extremity pain Skin/Breast: Denies: rash Neuro: Denies: dizziness Endo: Denies: polyuria or polydipsia PFS ED PFSH: Medical History Prostate hypertrophy Renal cancer Hypertension COPD (chronic obstructive pulmonary disease) Social History Smoking and tobacco/nicotine status: current every day tobacco/nicotine user Physical Exam Const: GENERAL APPEARANCE: cooperative and comfortable ORIENTATION/CONSCIOUSNESS: Yes awake, Yes oriented to person, Yes oriented to place and Yes oriented to time HENMT: COMMON NORMALS: normocephalic, atraumatic and hearing grossly normal bilaterally HEAD & SCALP: normocephalic and atraumatic Resp: EFFORT & INSPECTION: Yes tachypneic AUSCULTATION: rhonchi and wheezes Cardio: COMMON NORMALS: regular rate, regular rhythm and No murmurs present (Cardio) RATE: regular rate RHYTHM: regular rhythm GI: COMMON NORMALS: Soft to palpation and No hepatosplenomegaly present AUSCULTATION: Yes normoactive bowel sounds PALPATION: Yes Soft to palpation, No Tenderness to palpation present (GI), No Guarding due to palpation present (GI) and Yes No hepatosplenomegaly present Extremity: COMMON NORMALS: normal to inspection, capillary refill normal, no clubbing, cyanosis or edema, no calf tenderness and no pedal edema Neuro: SENSORIUM/ORIENTATION: Yes oriented to person, Yes oriented to place and Yes oriented to time Skin: COMMON NORMALS: no rashes or lesions noted GENERAL SKIN EXAM: no rashes or lesions noted Course Vital Signs: Vital signs: Vital Signs Temperature 98.1 F 01/02/24 16:10 Pulse Rate 70 01/02/24 22:05 Respiratory Rate 22 H 01/02/24 23:04 Blood Pressure 149/80 01/02/24 22:00 Pulse Oximetry 91 01/02/24 23:04 Oxygen Delivery Me thod Nasal Cannula 01/02/24 19:12 Oxygen Flow Rate 5 01/02/24 19:12 MDM - SOB/Dyspnea Medical Decision Making Chest x-ray on presentation shows recurrent pneumothorax. Patient was seen for this previously transferred to [facility] he tells me when he was discharged home after being there for a week with a chest tube follow-up identified a recurrent pneumothorax. I contacted the pulmonology group that he had seen him previously uploaded the chest x-ray. They felt that looked a little bit worse than before. They asked as to the repeat his CT. They are planning to except on transfer. CT ordered and is pending. Care signed out to Dr. Parr at change of shift. See final notes for diagnosis and disposition. I have discussed the patient's case with the on-call physician <Dr. Damon > and I have assumed care of the patient. We have discussed the current lab/radiographic results that have been resulted and the pending tests. Lab Data 01/02/24 17:36 01/02/24 17:36 Labs/Radiology: Radiology Impressions Chest CT 01/02/24 17:13 IMPRESSION: 1. Large right pneumothorax with up to 8.5 cm separation between the lung and pleura, somewhat more prominent compared to prior exam. The presence of the pneumothorax was described on the same-day chest x-ray. 2. Right apical 17 mm nodule, somewhat similar to prior exam. Left lower lobe 2.9 cm nodule. Consider non-emergent PET/CT, or tissue sampling.(Reference: Donovan) 3. Emphysematous changes. 4. Bilateral right greater than left small pleural effusions. 5. Small right pleural effusion. 6. Coronary artery atherosclerotic calcifications. 7. Scattered mediastinal lymph nodes measuring up to 9.5 mm short axis, nonspecific. 8. Left hepatic lobe 15 mm and right hepatic dome 16 mm low-density lesions with peripheral enhancement may reflect hemangiomas, correlation with CT abdomen and pelvis advised. 9. Several hepatic cysts. 10. Fusiform infrarenal abdominal aortic aneurysm measuring up to 4.6 cm superior to an apparent abdominal aortic stent partially visualized, similar to prior exam. 11. Right kidney cysts, negative for follow-up advised. 12. Small hiatal hernia. COMMENTS: The presence of pulmonary emphysema on CT is an independent risk factor for lung cancer. In the absence of a history or active diagnosis of lung cancer, it is recommended that this patient with emphysema be evaluated for enrollment in a low dose CT lung cancer screening program. REFERENCES: Donovan H, et al. Guidelines for Management of Incidental Pulmonary Nodules Detected on CT Images: From the Fleischner Society 2017. Radiology. 2017;284(1):228-243. Chest X-Ray 01/02/24 21:17 IMPRESSION: 1. Right-sided medially directed chest tube, previously seen right pneumothorax appears absent . 2. Bullous emphysematous changes in the apical lung ramon with diffuse emphysematous changes throughout the remainder of the lungs, similar to prior exam. 3. Trace right pleural effusion. 4. Bilateral mid to lower lung field atelectasis versus infiltrate. 5. Subcutaneous emphysema over the right chest. 6. Left-sided pacemaker. Laboratory Results WBC 13.77 10^3/uL (3.29-11.43) H 01/02/24 17:36 RBC 4.96 10^6/uL (3.85-5.65) 01/02/24 17:36 Hgb 14.80 g/dL (11.27-16.99) 01/02/24 17:36 Hct 45.5 % (37-53) 01/02/24 17:36 MCV 91.7 fl (82-101) 01/02/24 17:36 MCH 29.8 pg (27-33) 01/02/24 17:36 MCHC 32.5 g/dL (30-55) 01/02/24 17:36 RDW 16.1 % (12.1-15.1) H 01/02/24 17:36 Plt Count 223 10^3/cmm (157-399) 01/02/24 17:36 MPV 9.2 fL (7.4-10.4) 01/02/24 17:36 Neut % (Auto) 74.6 % 01/02/24 17:36 Lymph % (Auto) 13.3 % 01/02/24 17:36 Independence % (Auto) 7.3 % 01/02/24 17:36 Eos % (Auto) 3.6 % 01/02/24 17:36 Baso % (Auto) 0.6 % 01/02/24 17:36 Neut # (Auto) 10.27 10^3/uL (1.8-7.7) H 01/02/24 17:36 Lymph # (Auto) 1.8 10^3/uL (0.8-4.8) 01/02/24 17:36 Independence # (Auto) 1.0 10^3/uL (0.2-0.9) H 01/02/24 17:36 Eos # (Auto) 0.5 10^3/uL (0.0-0.8) 01/02/24 17:36 Baso # (Auto) 0.1 10^3/uL (0.0-0.1) 01/02/24 17:36 Nucleated RBC % (auto) 0 % 01/02/24 17:36 Nucleated RBCs # 0.0 /100WBC 01/02/24 17:36 Specimen Type Arterial 01/02/24 16:36 Sample Site Brachial, left 01/02/24 16:36 ABG pH 7.44 (7.35-7.45) 01/02/24 16:36 ABG pCO2 35.7 mmHg (35-45) 01/02/24 16:36 ABG pO2 54.6 mmHg (80.0-100.0) L 01/02/24 16:36 ABG PO2/FiO2 Ratio 0 01/02/24 16:36 ABG HCO3 24.4 mmol/L (22-26) 01/02/24 16:36 ABG O2 Saturation 90.0 01/02/24 16:36 ABG Base Excess 0.6 mmol/L (-2.0-2.0) 01/02/24 16:36 Nick Test N/a 01/02/24 16:36 A-a O2 Gradient 20.2 mmHg (5-10) H 01/02/24 16:36 Hematocrit 47.2 % (42-52) 01/02/24 16:36 Hgb O2 Saturation 85.9 % (95-100) L 01/02/24 16:36 Carboxyhemoglobin 4.1 %THgb (0.4-20.1) 01/02/24 16:36 Methemoglobin 0.5 % (0.4-1.5) 01/02/24 16:36 Total Hemoglobin 15.4 g/dL (14-18) 01/02/24 16:36 Sodium 143.0 mmol/L (131-143) 01/02/24 16:36 Potassium 3.4 mmol/L (3.5-5.0) L 01/02/24 16:36 Glucose 93.0 mg/dL (70-115) 01/02/24 16:36 Ionized Calcium 1.3 mmol/L (1.1-1.4) 01/02/24 16:36 O2 Delivery Device Nc 01/02/24 16:36 O2 Liters/Min 4.0 % 01/02/24 16:36 FiO2 36.0 % 01/02/24 16:36 Network Security Administrator ID [email or web address] 01/02/24 16:36 Sodium 145 mmol/L (136-145) 01/02/24 17:36 Potassium 3.9 mmol/L (3.5-5.1) 01/02/24 17:36 Chloride 112 mmol/L (98-107) H 01/02/24 17:36 Carbon Dioxide 25 mmol/L (22-29) 01/02/24 17:36 Anion Gap 11.9 (5-19) 01/02/24 17:36 BUN 16 mg/dL (8-23) 01/02/24 17:36 Creatinine 0.6 mg/dL (0.7-1.2) L 01/02/24 17:36 GFR Calculation 134.8 mL/min (90-130) H 01/02/24 17:36 Glucose 56 mg/dL (65-115) L 01/02/24 17:36 Calculated Osmolality 299 mOsm/kg (285-295) H 01/02/24 17:36 Calcium 9.0 mg/dL (8.5-10.5) 01/02/24 17:36 Total Bilirubin 0.2 mg/dL (0.15-1.2) 01/02/24 17:36 AST 12 U/L (0-40) 01/02/24 17:36 ALT 8 U/L (0-41) 01/02/24 17:36 Alkaline Phosphatase 82 U/L (40-130) 01/02/24 17:36 Troponin T Baseline 22 ng/L (0-15) H 01/02/24 17:36 Troponin T 120 Minute 17.35 ng/L (0-15) H 01/02/24 19:45 Delta Troponin T -4.65 ABS# (0-10) L 01/02/24 19:45 Total Protein 5.6 g/dL (6.6-8.7) L 01/02/24 17:36 Albumin 3.4 g/dL (3.5-5.2) L 01/02/24 17:36 Globulin 2.2 g/dL (1.3-4.6) 01/02/24 17:36 Discharge Plan Discharge Patient Disposition: Xfer Short-Term Hosp Clinical Impression: Pneumothorax on right Condition: Stable Referrals: Everardo Gallegos, [Primary Care Provider] - Coding Level of Care Code ED Ladle Puller for Chg Fwd Documented by User: Navdeep Parr MD 01/04/24 15:11 HPI - SOB/Dyspnea General: Chief Complaint: Shortness of Breath/Dyspnea Stated Complaint: sob Time Seen by Provider: 01/02/24 16:16 History of Present Illness: HPI Narrative: 68-year-old male presents emergency room with complaints of shortness of breath. He has a history of severe COPD is normally on 3 L by nasal cannula. He is requiring 4 to maintain sats in the low 90s. He did receive Ativan and a nebulizer and route which improved he had a respiratory rate of 40 initially when EMS seen him. We seen him back in October he had a loculated pneumothorax he was transferred to [facility] where he seen pulmonology they did place a chest tube and he was there he said between 5 or 7 days on a follow-up visit after that he was found to have recurrence of the pneumothorax but they had elected to just observe it. We do not have a picture of that image. He denies any fever sweats or chills he is not having any chest pain at this time. [facility] ED PFSH: Medical History Prostate hypertrophy Renal cancer Hypertension COPD (chronic obstructive pulmonary disease) Social History Smoking and tobacco/nicotine status: current every day tobacco/nicotine user Course ED course: Chest Tube Procedure Note INDICATION: Right Pneumothorax CONSENT: Consent was obtained from the patient prior to the procedure. Indications, risks, and benefits were explained at length. PROCEDURE SUMMARY: A time out was performed and after the chest x-ray was reviewed, the appropriate side was confirmed and marked. My hands were washed immediately prior to the procedure. I wore a surgical cap, mask with protective eyewear, sterile gown and sterile gloves throughout the procedure. The patient was prepped and draped in a sterile manner using chlorhexidine scrub after the patient was positioned in the usual fashion. A total of 10 ml of 2% lidocaine was used to anesthesize the skin, subcutaneous tissue, superior aspect of the rib periosteum and parietal pleura. A 2 cm incision was then made parallel to the rib in the midaxillary line at the level of the RIGHT 4th intercostal space. The subcutaneous tissue superficial and superior to the rib was dissected bluntly to the level of the pleura. The pleura was then entered bluntly. Hickman of air was noted from the pleural space. The disruption in the parietal pleura was expanded bluntly and a finger was inserted and swept carefully in all directions. A 32 Palestinian chest tube was then inserted using my finger as a guide. The chest tube was directed superiorly and inserted easily. The chest tube was sutured to the skin at the insertion site, and connected securely with tape to a pleurovac. A sterile occlusive dressing was placed over the insertion site. No immediate complications were noted. A post-procedure chest x-ray demonstrated improvement of the existing pneumothorax. Estimated blood loss is 4cc. Vital Signs: Vital signs: Vital Signs Temperature 98.1 F 01/02/24 16:10 Pulse Rate 70 01/02/24 22:05 Respiratory Rate 22 H 01/02/24 23:04 Blood Pressure 149/80 01/02/24 22:00 Pulse Oximetry 91 01/02/24 23:04 Oxygen Delivery Me thod Nasal Cannula 01/02/24 19:12 Oxygen Flow Rate 5 01/02/24 19:12 MDM - SOB/Dyspnea Medical Decision Making Chest x-ray on presentation shows recurrent pneumothorax. Patient was seen for this previously transferred to [facility] he tells me when he was discharged home after being there for a week with a chest tube follow-up identified a recurrent pneumothorax. I contacted the pulmonology group that he had seen him previously uploaded the chest x-ray. They felt that looked a little bit worse than before. They asked as to the repeat his CT. They are planning to except on transfer. CT ordered and is pending. Care signed out to Dr. Parr at change of shift. See final notes for diagnosis and disposition. I have discussed the patient's case with the off going physician <Dr. Damon > and I have assumed care of the patient. We have discussed the current lab/radiographic results that have been resulted and the pending tests. Medical Records I reviewed the patient's medical records. Lab Data I reviewed the patient's lab results. 01/02/24 17:36 01/02/24 17:36 Labs/Radiology: Radiology Impressions Chest CT 01/02/24 17:13 IMPRESSION: 1. Large right pneumothorax with up to 8.5 cm separation between the lung and pleura, somewhat more prominent compared to prior exam. The presence of the pneumothorax was described on the same-day chest x-ray. 2. Right apical 17 mm nodule, somewhat similar to prior exam. Left lower lobe 2.9 cm nodule. Consider non-emergent PET/CT, or tissue sampling.(Reference: Donovan) 3. Emphysematous changes. 4. Bilateral right greater than left small pleural effusions. 5. Small right pleural effusion. 6. Coronary artery atherosclerotic calcifications. 7. Scattered mediastinal lymph nodes measuring up to 9.5 mm short axis, nonspecific. 8. Left hepatic lobe 15 mm and right hepatic dome 16 mm low-density lesions with peripheral enhancement may reflect hemangiomas, correlation with CT abdomen and pelvis advised. 9. Several hepatic cysts. 10. Fusiform infrarenal abdominal aortic aneurysm measuring up to 4.6 cm superior to an apparent abdominal aortic stent partially visualized, similar to prior exam. 11. Right kidney cysts, negative for follow-up advised. 12. Small hiatal hernia. COMMENTS: The presence of pulmonary emphysema on CT is an independent risk factor for lung cancer. In the absence of a history or active diagnosis of lung cancer, it is recommended that this patient with emphysema be evaluated for enrollment in a low dose CT lung cancer screening program. REFERENCES: Donovan Uribe, et al. Guidelines for Management of Incidental Pulmonary Nodules Detected on CT Images: From the Fleischner Society 2017. Radiology. 2017;284(1):228-243. Chest X-Ray 01/02/24 21:17 IMPRESSION: 1. Right-sided medially directed chest tube, previously seen right pneumothorax appears absent . 2. Bullous emphysematous changes in the apical lung ramon with diffuse emphysematous changes throughout the remainder of the lungs, similar to prior exam. 3. Trace right pleural effusion. 4. Bilateral mid to lower lung field atelectasis versus infiltrate. 5. Subcutaneous emphysema over the right chest. 6. Left-sided pacemaker. Laboratory Results WBC 13.77 10^3/uL (3.29-11.43) H 01/02/24 17:36 RBC 4.96 10^6/uL (3.85-5.65) 01/02/24 17:36 Hgb 14.80 g/dL (11.27-16.99) 01/02/24 17:36 Hct 45.5 % (37-53) 01/02/24 17:36 MCV 91.7 fl (82-101) 01/02/24 17:36 MCH 29.8 pg (27-33) 01/02/24 17:36 MCHC 32.5 g/dL (30-55) 01/02/24 17:36 RDW 16.1 % (12.1-15.1) H 01/02/24 17:36 Plt Count 223 10^3/cmm (157-399) 01/02/24 17:36 MPV 9.2 fL (7.4-10.4) 01/02/24 17:36 Neut % (Auto) 74.6 % 01/02/24 17:36 Lymph % (Auto) 13.3 % 01/02/24 17:36 Independence % (Auto) 7.3 % 01/02/24 17:36 Eos % (Auto) 3.6 % 01/02/24 17:36 Baso % (Auto) 0.6 % 01/02/24 17:36 Neut # (Auto) 10.27 10^3/uL (1.8-7.7) H 01/02/24 17:36 Lymph # (Auto) 1.8 10^3/uL (0.8-4.8) 01/02/24 17:36 [place] # (Auto) 1.0 10^3/uL (0.2-0.9) H 01/02/24 17:36 Eos # (Auto) 0.5 10^3/uL (0.0-0.8) 01/02/24 17:36 Baso # (Auto) 0.1 10^3/uL (0.0-0.1) 01/02/24 17:36 Nucleated RBC % (auto) 0 % 01/02/24 17:36 Nucleated RBCs # 0.0 /100WBC 01/02/24 17:36 Specimen Type Arterial 01/02/24 16:36 Sample Site Brachial, left 01/02/24 16:36 ABG pH 7.44 (7.35-7.45) 01/02/24 16:36 ABG pCO2 35.7 mmHg (35-45) 01/02/24 16:36 ABG pO2 54.6 mmHg (80.0-100.0) L 01/02/24 16:36 ABG PO2/FiO2 Ratio 0 01/02/24 16:36 ABG HCO3 24.4 mmol/L (22-26) 01/02/24 16:36 ABG O2 Saturation 90.0 01/02/24 16:36 ABG Base Excess 0.6 mmol/L (-2.0-2.0) 01/02/24 16:36 Nick Test N/a 01/02/24 16:36 A-a O2 Gradient 20.2 mmHg (5-10) H 01/02/24 16:36 Hematocrit 47.2 % (42-52) 01/02/24 16:36 Hgb O2 Saturation 85.9 % (95-100) L 01/02/24 16:36 Carboxyhemoglobin 4.1 %THgb (0.4-20.1) 01/02/24 16:36 Methemoglobin 0.5 % (0.4-1.5) 01/02/24 16:36 Total Hemoglobin 15.4 g/dL (14-18) 01/02/24 16:36 Sodium 143.0 mmol/L (131-143) 01/02/24 16:36 Potassium 3.4 mmol/L (3.5-5.0) L 01/02/24 16:36 Glucose 93.0 mg/dL (70-115) 01/02/24 16:36 Ionized Calcium 1.3 mmol/L (1.1-1.4) 01/02/24 16:36 O2 Delivery Device Nc 01/02/24 16:36 O2 Liters/Min 4.0 % 01/02/24 16:36 FiO2 36.0 % 01/02/24 16:36 Network Security Administrator ID [email or web address] 01/02/24 16:36 Sodium 145 mmol/L (136-145) 01/02/24 17:36 Potassium 3.9 mmol/L (3.5-5.1) 01/02/24 17:36 Chloride 112 mmol/L (98-107) H 01/02/24 17:36 Carbon Dioxide 25 mmol/L (22-29) 01/02/24 17:36 Anion Gap 11.9 (5-19) 01/02/24 17:36 BUN 16 mg/dL (8-23) 01/02/24 17:36 Creatinine 0.6 mg/dL (0.7-1.2) L 01/02/24 17:36 GFR Calculation 134.8 mL/min (90-130) H 01/02/24 17:36 Glucose 56 mg/dL (65-115) L 01/02/24 17:36 Calculated Osmolality 299 mOsm/kg (285-295) H 01/02/24 17:36 Calcium 9.0 mg/dL (8.5-10.5) 01/02/24 17:36 Total Bilirubin 0.2 mg/dL (0.15-1.2) 01/02/24 17:36 AST 12 U/L (0-40) 01/02/24 17:36 ALT 8 U/L (0-41) 01/02/24 17:36 Alkaline Phosphatase 82 U/L (40-130) 01/02/24 17:36 Troponin T Baseline 22 ng/L (0-15) H 01/02/24 17:36 Troponin T 120 Minute 17.35 ng/L (0-15) H 01/02/24 19:45 Delta Troponin T -4.65 ABS# (0-10) L 01/02/24 19:45 Total Protein 5.6 g/dL (6.6-8.7) L 01/02/24 17:36 Albumin 3.4 g/dL (3.5-5.2) L 01/02/24 17:36 Globulin 2.2 g/dL (1.3-4.6) 01/02/24 17:36 All radiology interpretation(s) finalized by discharge Critical Care Time Critical Care Time: Critical Care Time: Yes Total Critical Care Time: 55 Attestation: The patients was emergently evaluated as this patient's presentation and case had a high probability of a clinically significant, sudden, or life threatening deterioration of this patient's initial critical presentation or condition which required my full and direct attention, intervention and personal management. Discharge Plan Discharge Patient Disposition: Xfer Short-Term Hosp Clinical Impression: Pneumothorax on right Condition: Stable Referrals: Everardo Gallegos DO [Primary Care Provider] - Coding Level of Care Code ED Ladle Puller for Jana Weller
[2024-01-02] MEDS: dexamethasone 10 mg/mL INJ IVP (16:39)
[2024-01-02 16:47] LABS: ABG PCO2 35.7 mmHg (35-45); ABG PH Result 7.44 (7.35-7.45); Alveolar-Arterial Oxygen Gradi 20.2 mmHg (5-10); Arterial Blood Gas Hematocrit 47.2 % (42-52); Base Excess ABG 0.6 mmol/L (-2.0-2.0); Blood Gas Operator Identificat AMH; Blood Gas Sample Site Brachial, left; Blood Gas Sample Type Arterial; Carboxyhemoglobin 4.1 %THgb (0.4-20.1); HCO3 ABG 24.4 mmol/L (22-26); HGB O2 Sat 85.9 % (95-100); Ionized Calcium Level - ABG 1.3 mmol/L (1.1-1.4); Methemoglobin 0.5 % (0.4-1.5); Oxygen Device NC; PO2 ABG 54.6 mmHg (80.0-100.0); PO2 FiO2 Ratio Arterial Blood 0; Potassium Level - ABG 3.4 mmol/L (3.5-5.0); Total Hemoglobin 15.4 g/dL (14-18)
--- NOTE | 2024-01-02 17:13 | CTR_ITS ---
PROCEDURE INFORMATION: Exam: CT Chest With Contrast; Diagnostic Exam date and time: 01/02/2024 6:55 PM Age: 68 years old Clinical indication: Shortness of breath; Prior surgery; Surgery date: 6+ months; Surgery type: Pacer. Aaa graft; Patient HX: C/O worsening SOB. Concern for pneumothorax on cxr. History of prior pneumothorax. TECHNIQUE: Imaging protocol: Diagnostic computed tomography of the chest with contrast. Radiation optimization: All CT scans at this facility use at least one of these dose optimization techniques: automated exposure control; mA and/or kV adjustment per patient size (includes targeted exams where dose is matched to clinical indication); or iterative reconstruction. Contrast material: OMNI 350; Contrast volume: 100 ml; Contrast route: INTRAVENOUS (IV); COMPARISON: CT angio chest PE protcl [id number] 11/12/2023 3:19 PM RADIATION DOSE METRICS: Total DLP (mGy-cm): 321.25 FINDINGS: Lungs: Right apical 17 mm nodule, somewhat similar to prior exam. Left lower lobe 2.9 cm nodule. Emphysematous changes. Pleural spaces: Large right pneumothorax with up to 8.5 cm separation between the lung and pleura, somewhat more prominent compared to prior exam. The presence of the pneumothorax was described on the same-day chest x-ray. Small right pleural effusion. Bilateral right greater than left small pleural effusions. Heart: Left-sided pacemaker. Coronary arteries: Coronary artery atherosclerotic calcifications. Lymph nodes: Scattered mediastinal lymph nodes measuring up to 9.5 mm short axis, nonspecific. Vasculature: Fusiform infrarenal abdominal aortic aneurysm measuring up to 4.6 cm superior to an apparent abdominal aortic stent partially visualized, similar to prior exam. Diaphragm: Small hiatal hernia. Liver: Left hepatic lobe 15 mm and right hepatic dome 16 mm low-density lesions with peripheral enhancement may reflect hemangiomas, correlation with CT abdomen and pelvis advised. Several hepatic cysts. Kidneys and ureters: Right kidney cysts, negative for follow-up advised. Bones/joints: Unremarkable. No acute fracture. Soft tissues: Unremarkable. CT/CT chest w con* [id number] IMPRESSION: 1. Large right pneumothorax with up to 8.5 cm separation between the lung and pleura, somewhat more prominent compared to prior exam. The presence of the pneumothorax was described on the same-day chest x-ray. 2. Right apical 17 mm nodule, somewhat similar to prior exam. Left lower lobe 2.9 cm nodule. Consider non-emergent PET/CT, or tissue sampling.(Reference: Donovan) 3. Emphysematous changes. 4. Bilateral right greater than left small pleural effusions. 5. Small right pleural effusion. 6. Coronary artery atherosclerotic calcifications. 7. Scattered mediastinal lymph nodes measuring up to 9.5 mm short axis, nonspecific. 8. Left hepatic lobe 15 mm and right hepatic dome 16 mm low-density lesions with peripheral enhancement may reflect hemangiomas, correlation with CT abdomen and pelvis advised. 9. Several hepatic cysts. 10. Fusiform infrarenal abdominal aortic aneurysm measuring up to 4.6 cm superior to an apparent abdominal aortic stent partially visualized, similar to prior exam. 11. Right kidney cysts, negative for follow-up advised. 12. Small hiatal hernia. COMMENTS: The presence of pulmonary emphysema on CT is an independent risk factor for lung cancer. In the absence of a history or active diagnosis of lung cancer, it is recommended that this patient with emphysema be evaluated for enrollment in a low dose CT lung cancer screening program. REFERENCES: Donovan Uribe, et al. Guidelines for Management of Incidental Pulmonary Nodules Detected on CT Images: From the Fleischner Society 2017. Radiology. 2017;284(1):228-243.
[2024-01-02] MEDS: levofloxacin-dextrose 5 % 750 MG/150 ML PREMIX 100 MG IV (17:17)
[2024-01-02 17:53] LABS: Basophils # 0.1 10^3/uL (0.0-0.1); Basophils % 0.6 %; Eosinophils # 0.5 10^3/uL (0.0-0.8); Eosinophils % 3.6 %; Hematocrit 45.5 % (37-53); Lymphocytes # 1.8 10^3/uL (0.8-4.8); Lymphocytes % 13.3 %; Mean Corpuscular HGB Conc 32.5 g/dL (30-55); Mean Corpuscular Hemoglobin 29.8 pg (27-33); Mean Corpuscular Volume 91.7 fl (82-101); Mean Platelet Volume 9.2 fL (7.4-10.4); Monocytes % 7.3 %; Neutrophils # 10.27 10^3/uL (1.8-7.7); Neutrophils % 74.6 %; Nucleated Red Blood Cells % 0 %; Platelet Count 223 10^3/cmm (157-399); Red Blood Count 4.96 10^6/uL (3.85-5.65); Red Cell Distribution Width 16.1 % (12.1-15.1); White Blood Count 13.77 10^3/uL (3.29-11.43)
[2024-01-02 18:13] LABS: Troponin(5th) Baseline 22 ng/L (0-15)
[2024-01-02 18:15] LABS: Alanine Aminotransferase 8 U/L (0-41); Albumin Level 3.4 g/dL (3.5-5.2); Alkaline Phosphatase 82 U/L (40-130); Anion Gap 11.9 (5-19); Aspartate Amino Transferase 12 U/L (0-40); Blood Urea Nitrogen 16 mg/dL (8-23); Carbon Dioxide 25 mmol/L (22-29); Chloride 112 mmol/L (98-107); Creatinine Clr Calc Pharmacy 81.5837; Globulin 2.2 g/dL (1.3-4.6); Glomerular Filtration Rate 134.8 mL/min (90-130); Glucose 56 mg/dL (65-115); Osmolality Calculated 299 mOsm/kg (285-295); Potassium 3.9 mmol/L (3.5-5.1); Sodium 145 mmol/L (136-145); Total Bilirubin 0.2 mg/dL (0.15-1.2); Total Protein 5.6 g/dL (6.6-8.7)
--- NOTE | 2024-01-02 18:17 | ECG_ITS ---
[facility] Test Date: 2024-01-02 Pat Name: Zeyad Chu Department: Room: Gender: Male Ground [employer]: : 1955 Requested By: Te Crowley Order Number: [id number] Alfonso MD: Melo Oneill M.D. Measurements Intervals [place] Rate: 75 P: 70 WI: 216 QRS: 83 QRSD: 104 T: 71 QT: 369 QTc: 413 Interpretive Statements SINUS RHYTHM WITH SINUS ARRHYTHMIA WITH FIRST DEGREE AV BLOCK Compared to ECG 01/02/2024 16:13:54 First degree AV block now present Sinus tachycardia no longer present Indeterminate axis no longer present T-wave abnormality no longer present Electronically Signed On 01-03-2024 15:58:36 CDT by Melo Oneill M.D. [id number]
[2024-01-02] MEDS: iohexol 350 mg/mL 500 mL Btl (per mL) IV (18:54)
[2024-01-02 20:08] LABS: Troponin 5 2HR 17.35 ng/L (0-15); Troponin 5 2HR Delta -4.65 ABS# (0-10)
[2024-01-02] MEDS: midazolam 1 mg/mL INJ 2 mL IVP (20:39)
[2024-01-02] MEDS: lidocaine 2% INJ 20 mL INJECTION (20:46)
--- NOTE | 2024-01-02 21:17 | XRR_ITS ---
PROCEDURE INFORMATION: Exam: XR Chest Exam date and time: 01/02/2024 9:22 PM Age: 68 years old Clinical indication: Device placement; Chest tube; Additional info: Post-cx tube placement TECHNIQUE: Imaging protocol: Radiologic exam of the chest. Views: 1 view. COMPARISON: CT chest w con* [id number] 01/02/2024 6:55 PM FINDINGS: Lungs: Bullous emphysematous changes in the apical lung ramon with diffuse emphysematous changes throughout the remainder of the lungs, similar to prior exam. Bilateral mid to lower lung field atelectasis versus infiltrate. Pleural spaces: Right-sided medially directed chest tube, previously seen right pneumothorax appears absent . Trace right pleural effusion. Heart/Mediastinum: Left-sided pacemaker. Bones/joints: Unremarkable. Soft tissues: Subcutaneous emphysema over the right chest. XR/XR chest 1V portable [id number] IMPRESSION: 1. Right-sided medially directed chest tube, previously seen right pneumothorax appears absent . 2. Bullous emphysematous changes in the apical lung ramon with diffuse emphysematous changes throughout the remainder of the lungs, similar to prior exam. 3. Trace right pleural effusion. 4. Bilateral mid to lower lung field atelectasis versus infiltrate. 5. Subcutaneous emphysema over the right chest. 6. Left-sided pacemaker.
[2024-01-02] MEDS: fentaNYL 50 mcg/mL INJ 2mL IVP (22:12)
[2024-01-02] MEDS: fentaNYL 50 mcg/mL INJ 2mL 100 MCG IVP (23:04)
== END 2024-01-02 23:09 | disposition short-term general hospital (02) ==
PROVIDERS: Family Medicine; Emergency Provider Internal Medicine; PCP Family Medicine
DX: J93.9 Pneumothorax, unspecified (principal); Z85.528 Personal history of other malignant neoplasm of kidney; I10 Essential (primary) hypertension; J44.9 Chronic obstructive pulmonary disease, unspecified; Z72.0 Tobacco use
CPT/HCPCS: 32551; 36415; 36600; 71045; 71260; 80051; 80053; 82330; 82805; 84484; 85025; 93005; 94640; 96365; 96366; 96375; 96376; 99291; J1100; J1956; J2250; J3010; Q9967